=== PATIENT | female | born 1975 | race Caucasian/White ===

== ENCOUNTER 2024-05-19 11:38 | Observation (INO) | payer MEDICAID, SELFPAY ==
[2024-05-19] VITALS (12 sets, daily range): BP systolic 92–103; BP diastolic 60–77; PULSE 71–94; RESP 14–20; TEMP 36.4–36.7; O2SAT 88–100; BMI 35.9
--- NOTE | 2024-05-19 11:56 | EDNOTE_ITS ---
ED SOB =RME/HPI General Chief Complaint: Shortness of Breath/Dyspnea Stated Complaint: SOB WITH SYNCOPAL EPISODE Time Seen by Provider: 05/19/24 11:47 Arrival date/time: 05/19/24 11:38 RME / HPI RME / HPI Narrative: DR. DIAS MAIN ED EVALUATION: This section includes all my notes and documentations, including HPI, PE, and ED course.? Josiah Dias MD HPI: 48 year old female with past medical history significant for asthma and DVT's presents to the Emergency Department [facility] with complaint of shortness of breath onset today. Symptmos are modearte. Pateint also had a syncopal episode at home for a few seconds. Patient went to the the restroom, to urinate, and when she got up she passed out; the daughter helped her. No injury. Per EMS, systolic blood pressure was in leslie 80's. No other complaints reported. ROS: All negative except as documented in HPI. Physical Exam: General:? Alert and oriented.? Tachypnea noted. Eyes:? Conjunctivae and lids clear. PERRL. EOMI. ENT:? No nasal congestion.? ? Neck:? Supple. No carotid bruit. No JVD. Heart: Sinus tachycardia noted. Lungs:? Good air movement.? Stridor and wheezing noted. Rales in the left upper field. Abdomen:? Soft and nontender.? Legs:? No clubbing, cyanosis, edema. Skin:? Warm and dry.? Neuro:? Alert and oriented X 3.? Cranial nerves II to XII grossly normal. No p eripheral motor deficits. I reviewed all diagnostic test results. My interpretation of the EKG is?sinus rhythm with no acute ST?T changes. My interpretation of the chest x-ray is no pneumonia or pulmonary edema My review of the head and neck CT reports is?no acute findings. My review of the ultrasound report is no acute findings. Blood tests and urine tests remarkable for WBC 12.7, negative D-dimer, K 3.3, LA 3.0. COVID/influenza negative. At this point, diagnoses include: Acute respiratory failure with hypoxia, Stridor, Wheezing, Elevated lactic acid level, Hypotension Treatment here included IV fluid, Epinephrine neb treatment, Levalbuterol neb treatment, Lorazepam, oral KCl, and Rocephin. Some improvement noted. I discussed the case with our hospitalist.? About the presentation and exam and diagnostics and treatments here.? And need of further care in the hospital. Will not accept the patient at this time until chest CTA to rule out PE despite normal D-dimer. Ordered chest CTA. At 6 PM on 05/19/2024, the care of the patient was transferred to Dr. Muñoz. Josiah Dias MD Related Data Home Medications ?Medication ?Instructions ?Recorded ?Confirmed gabapentin 800 mg tablet 800 mg PO Q6H 08/04/2004/01 hydrocodone 5 mg-acetaminophen 325 1 tab PO BID PRN Pa in 08/04/20 04/01/23 mg tablet ibuprofen 800 mg tablet 800 mg PO BID 03/22/2104/01 Held on 10/29/22. Instructions: Resume on 11/05/22. naproxen 500 mg tablet (Naprosyn) 500 mg PO Q12HR PRN Pain 03/22/21 04/01/23 Held on 10/29/22. Instructions: Resume on 11/05/22. Previous Rx's ?Medication ?Instructions ?Recorded atorvastatin 20 mg tablet 40 mg (2 x 20 mg) PO HS #60 tabs 07/07/21 famotidine 20 mg tablet 20 mg PO DAILY #30 tabs 06/16 06/05 ibuprofen 800 mg tablet 800 mg PO TID PRN pain #30 t abs 07/17/23 Allergies Allergy/AdvReac Type Severity Reaction Status Date / Time No Known Allergies Allergy Verified 04/01/23 15:04 Course Quality Measures none Orders Category Date Time Status Bedside COVID-19 Antigen Test NOW Care 05/19/24 12:01 Active Bedside Influenza A&B Antigen Test NOW Care 05/19/24 12:[address] Screening NOW Care 05/19/24 12:[address] Screening NOW Care 05/19/24 13:[address] Screening NOW Care 05/19/24 16:39 Active EKG (ED ONLY) *Do not use* NOW Care 05/19/24 12:02 Completed Orthostatic Vitals NOW Care 05/19/24 12:03 Active Saline [Insert IV] NOW Care 05/19/24 12:01 Active Straight [In and Out Catheter] X1 Care 05/19/24 12:[address] abdomen pelvis w con Stat Exams 05/19/24 16:[address] angio chest Stat Exams 05/19/24 16:[address] head/brain wo con Stat Exams 05/19/24 14:[address] soft tissue neck wo con Stat Exams 05/19/24 14:00 Completed EKG (ED Only) Stat Exams 05/19/24 12:02 Ordered US OB <= 14 weeks fetus Stat Exams 05/19/24 13:47 Completed XR chest 1V portable Stat Exams 05/19/24 12:02 Completed ABG [Arterial Blood Gas] Stat Lab 05/19/24 12:37 Completed BNP [B-Type Natriuretic Peptide] Stat Lab 05/19/24 12:32 Completed Beta HCG,Quantitative Stat Lab 05/19/24 12:32 Completed Blood Culture (Lab) Stat Lab 05/19/24 12:20 Received CBC Stat Lab 05/19/24 12:32 Completed CMP [Comprehensive Metabolic Panel] Stat Lab 05/19/24 12:32 Completed CRP [C-Reactive Protein] Stat Lab 05/19/24 12:32 Completed D-Dimer Stat Lab 05/19/24 12:32 Completed ESR [Sed Rate (ESR)] Stat Lab 05/19/24 12:32 Completed HCG Qualitative,Urine Stat Lab 05/19/24 16:56 Completed HCG,Qualitative Serum Stat Lab 05/19/24 12:32 Completed Lactate (Lactic Acid) Stat Lab 05/19/24 12:32 Completed Lactic Acid, 3 HR Stat Lab 05/19/24 16:02 Completed Magnesium Stat Lab 05/19/24 12:32 Completed Procalcitonin Stat Lab 05/19/24 12:32 Completed RSV [Respiratory Syncytial Virus Ag] Stat Lab 05/19/24 12:03 Ordered TSH [Thyroid Stimulating Hormone] Stat Lab 05/19/24 12:32 Completed Troponin I Stat Lab 05/19/24 12:32 Completed UA, C/S IF [Urinalysis, C/S if Indicated] Stat Lab 05/19/24 16:56 Completed EPINEPHrine Rt Cathy [Racemic Epi Rt Cathy] Med 05/19/24 13:05 Discontinued 1 ml INH X1 ONE KCL 10% Liq UDC 15 ML Med 05/19/24 13:27 Discontinued 40 meq PO X1 ONE LORazepam [Ativan Inj] Med 05/19/24 13:05 Discontinued 0.5 mg IVP X1 ONE Levalbuterol Rt [Xopenex Rt Cathy] Med 05/19/24 13:05 Discontinued 1.25 mg INH X1 ONE Sodium Chloride 0.9% 1000 ml [Ns] 1,000 ml Med 05/19/24 12:01 Discontinued IV 999 mls/hr Sodium Chloride Rt Cathy 0.9% [NS Rt Cathy 0.9%] Med 05/19/24 13:05 Active 3 ml INH PRN PRN cefTRIAXone [Rocephin] 1,000 mg Med 05/19/24 12:01 Discontinued SODIUM CHLORIDE 0.9% (Popper) [Ns 0.9% (P)] 50 ml IV X1 Vital Signs Vital signs: Vital Signs Temperature 97.7 F 05/19/24 11:46 Pulse Rate 92 05/19/24 11:46 Respiratory Rate 18 05/19/24 11:46 Blood Pressure 93/60 05/19/24 11:46 Pulse Oximetry (%) 96 05/19/24 11:46 Oxygen Delivery Method Room Air 05/19/24 11:46 Shortness of Breath / Dyspnea MDM Narrative MDM Narrative:: IRomana am scribing for and in the presence of Dr. Dias. Patient data External records reviewed:: EMS form Clinical information provided by:: patient and EMS Social determinants that could affect healthcare access:: none Patient has the following chronic illnesses:: Asthma and DVT's How is presenting disease/condition affected by chronic disease/condition?: exacerbated by Evaluation data The following diagnostics were reviewed and interpreted by me:: lab results, radiology exam(s) and EKG tracing(s) (My interpretation of the EKG is: Sinus rhythm (88 bpm) with nonspecific ST-T changes. Josiah Dias MD) Lab and/or radiology exams considered but not ordered:: none Interpretation Summary: Acute respiratory failure with hypoxia, Stridor, Wheezing, Elevated lactic acid level, Hypotension Medications / Prescriptions Medications or Prescriptions considered but not ordered:: none Medication administrations:: Medication Administration History Sodium Chloride (Sodium Chloride Rt Cathy 0.9% 3 Ml Nebu) 3 ml INH PRN PRN PRN Reason: SOLN Stop: 06/18/24 13:04 Discontinued Medications Epinephrine (Epinephrine Rt Cathy 0.5 Ml Nebu) 1 ml INH X1 ONE Stop: 05/19/24 13:06 Last Admin: 05/19/24 13:31 Dose: 1 ml Documented By: SONY Ceftriaxone Sodium 1,000 mg/ (Sodium Chloride) 50 mls @ 100 mls/hr IV X1 ONE Stop: 05/19/24 12:30 Last Infusion: 05/19/24 13:51 Dose: Infused Documented By: Admin: 05/19/24 13:21 Dose: 100 mls/hr Documented By: RUBEN Sodium Chloride (Ns) 1,000 mls @ 999 mls/hr IV .Q1H1M ONE Stop: 05/19/24 13:01 Last Infusion: 05/19/24 13:05 Dose: Infused Documented By: Admin: 05/19/24 12:04 Dose: 999 mls/hr Documented By: RUBEN Levalbuterol HCl (Levalbuterol Rt 1.25 Mg/0.5 Ml Nebu) 1.25 mg INH X1 ONE Stop: 05/19/24 13:06 Last Admin: 05/19/24 13:31 Dose: 1.25 mg Documented By: SONY Lorazepam (Lorazepam 2 Mg/Ml Vial) 0.5 mg IVP X1 ONE Stop: 05/19/24 13:06 Last Admin: 05/19/24 13:14 Dose: 0.5 mg Documented By: RUBEN Potassium Chloride (Potassium Chloride 10% 20 Meq/15 Ml Udc) 40 meq PO X1 ONE Stop: 05/19/24 13:28 Last Admin: 05/19/24 16:31 Dose: 40 meq Documented By: RUBEN IV fluids, Epinephrine, Levalbuterol, Lorazepam, oral KCl, oxygen, and Rocephin. Consultations Consultation(s) initiated? (list below): No Diagnosis Shortness of Breath Differential Diagnosis: acute exacerbation of chronic obstructive airways disease, congestive heart failure, community acquired pneumonia, asthma with exacerbation and pulmonary embolism Most likely diagnosis given after review of the tests above:: Acute respiratory failure with hypoxia, Stridor, Wheezing, Elevated lactic acid level, Hypotension Admission Indicated Admission indicated?: not indicated Explain why admission is indicated or not indicated:: Chest CTA pending Admission Request Was there a request for admission?: Yes Admission Attestation Admission request attestation: Discussed case with Hospitalist service regarding admission. Discussed patients ED course, exam findings, labs, and radiology results. The Hospitalist [declines] to accept the patient for admission, until chest CTA performed. Disposition Plan Disposition Plan: other (specify) (Care of the patient was transferred to Dr. Muñoz.) Discharge Plan Prescriptions/Referrals Prescriptions/Med Rec: No Action hydrocodone-acetaminophen 5-325 mg Tablet 1 tab PO BID PRN (Reason: Pain) gabapentin 800 mg Tablet 800 mg PO Q6H atorvastatin 20 mg Tablet 40 mg PO HS Qty: 60 0RF famotidine 20 mg Tablet 20 mg PO DAILY Qty: 30 0RF ibuprofen 800 mg Tablet 800 mg PO BID naproxen [Naprosyn] 500 mg tablet 500 mg PO Q12HR PRN (Reason: Pain) ibuprofen 800 mg tablet 800 mg PO TID PRN (Reason: pain) Qty: 30 0RF Referrals: Chepe Lindsey MD [Primary Care Provider] - In 1 week Problem List Clinical Impression: Acute respiratory failure with hypoxia, Stridor, Wheezing, Elevated lactic acid level, Hypotension, Syncope Patient/Caregiver Discharge Instructions Print Language: Spanish
--- NOTE | 2024-05-19 12:02 | EKG_ITS ---
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
--- NOTE | 2024-05-19 12:02 | XR_ITS ---
Examination: AP chest single view TECHNIQUE: Portable AP sitting chest single view Exam date and time: May 19, 2024 1255 hours Comparison October 26, 2022 INDICATIONS: Shortness of breath today. FINDINGS: Normal heart size. No pneumonia or pulmonary edema. Moderate osteopenia IMPRESSION: No pneumonia or pulmonary edema
[2024-05-19] MEDS: SODIUM CHLORIDE 0.9% 1000 ML 1,000 ML 999 ML IV ×2 (12:04→19:35)
[2024-05-19 12:40] LABS: Base Excess -1 (-3-3); HCO3 25 mEq/L (20-26); Inspired Oxygen, FIO2 21 %; O2 Saturation 96 % (91-98); PCO2 46 mmHg (32.0-48.0); PO2 79 mmHg (83-108); pH, Arterial 7.34 (7.35-7.45)
[2024-05-19 12:42] LABS: Allen Test Performed/OK; Puncture Site Right Radial
[2024-05-19 12:53] LABS: Basophils # (Auto) 0.1 Thou/mm3 (0.0-0.2); Basophils % (Auto) 1 % (0-2.5); Eosinophils # (Auto) 0.1 Thou/mm3 (0.0-0.5); Eosinophils % (Auto) 1 % (0-10); Hematocrit 32.2 % (36.0-46.0); Hemoglobin 10.4 g/dL (12.0-16.0); Immature Granulocytes % (Auto) 0 % (0-0); Immature Granulocytes Auto 0.04 Thou/mm3 (0.00-0.00); Lymphocytes # (Auto) 4.1 Thou/mm3 (1.0-4.8); Lymphocytes % (Auto) 32 % (10-50); Mean Corpuscular HGB Conc 32.3 g/dl (31.0-37.0); Mean Corpuscular Hemoglobin 28.1 pg (25.0-35.0); Mean Corpuscular Volume 87 fL (80-100); Monocytes % (Auto) 8 % (0-12); Neutrophils # (Auto) 7.4 Thou/mm3 (1.8-7.7); Neutrophils % (Auto) 58 % (37-80); Nucleated Red Blood Cell % 0 /100 WBC (0); Platelet Count 291 Thou/mm3 (140-440); RDW Standard Deviation 45.8 fL (36.4-46.3); White Blood Count 12.7 Thou/mm3 (3.6-11.0)
[2024-05-19] MEDS: LORazepam 2 MG/ML VIAL 0.5 MG IVP (13:14)
[2024-05-19 13:15] LABS: Sed Rate (ESR) 12 mm/hr (0-20)
[2024-05-19 13:19] LABS: Alanine Aminotransferase 12 U/L (10-49); Albumin, Serum 3.9 gm/dL (3.5-5.0); Albumin/Globulin Ratio 1.6 (1.2-2.2); Alkaline Phosphatase 97 U/L (46-116); Anion Gap 10 (7-16); Aspartate Amino Transferase 33 U/L (0-34); BUN/Creatinine Ratio 12 Ratio (12-20); Bilirubin,Total 0.2 mg/dL (0.3-1.2); Blood Urea Nitrogen 11 mg/dL (9-23); C-Reactive Protein 0.6 mg/dL (0.0-0.9); Calcium 8.6 mg/dL (8.3-10.6); Calcium (Corrected) 8.7 mg/dL (8.5-10.1); Chloride 106 mMol/L (98-107); Creatinine (Component) 0.9 mg/dL (0.6-1.3); Estimated Creatinine Clearance 77.9 mL/min (>60); Globulin 2.4 gm/dL (2.3-3.5); Glucose 132 mg/dL (74-106); Magnesium 1.6 mg/dL (1.6-2.6); Osmolality,Calculated 286 (275-295); Potassium 3.3 mMol/L (3.4-5.1); Procalcitonin 0.07 ng/ml (0.0-0.49); Sodium 143 mMol/L (136-145); Thyroid Stimulating Hormone 5.97 uIU/mL (0.55-4.78); Total Protein 6.3 gm/dL (5.7-8.2); Troponin I < 0.002 ng/mL (0.0-0.045); eGFR > 60 See Note
[2024-05-19] MEDS: cefTRIAXone 1,000 MG in SODIUM CHLORIDE 0.9% (Popper) 50 ML 100 MG IV (13:21)
[2024-05-19 13:31] LABS: HCG,Qualitative Serum Positive
[2024-05-19] MEDS: EPINEPHrine RT SOL 0.5 ML NEBU 1 ML INH (13:31)
[2024-05-19] MEDS: LEVALBUTEROL RT 1.25 MG/0.5 ML NEBU INH (13:31)
[2024-05-19 13:45] LABS: D-Dimer < 250 ng/mL (<600)
--- NOTE | 2024-05-19 13:47 | XR_ITS ---
Examination: Complete OB ultrasound, less than 14 weeks, transabdominal Date and time of exam: May 19, 2024 1411 hours INDICATIONS: Hysterectomy 20 years ago, positive hCG today Technique: Obstetrical ultrasound images less than 14 weeks performed via transabdominal imaging Findings: Absent uterus Ovaries not visualized No free fluid in the pelvis No pelvic mass IMPRESSION: Absent uterus and ovaries
--- NOTE | 2024-05-19 14:00 | XR_ITS ---
Examination: CT brain head without contrast. 2-D sagittal coronal reconstructions Date and time of exam:May 19, 2024 1541 hours INDICATIONS: Syncopal episode today CTDI: vol (mGy):49.8 DLP: (mGycm):999 Technique: Multiple CT axial sections of the brain have been obtained, 5 mm slice thickness. Contrast has not been administered. 2-D sagittal, coronal reconstructions have been obtained Low dose protocols were performed. One or more of the following dose reduction techniques were used; automated exposure control, adjustment of the mA and/or KV according to patient size, use of iterative reconstruction technique. Findings: No significant ventricular enlargement. Intra-axial or extra-axial hemorrhage density is not seen. No mass effect or midline shift Basal cisterns are not remarkable. Fourth ventricle is midline. Cranial vault intact. Impression: Negative for acute hemorrhage, mass effect or midline shift Advise clinical correlation follow-up accordingly
--- NOTE | 2024-05-19 14:00 | XR_ITS ---
Examination: CT soft tissue neck, without intravenous contrast. 2-D coronal reconstructions. 2-D sagittal reconstructions. Date and time of exam :May 19, 2024 1544 hours INDICATIONS: Difficulty swallowing today. CTDI: vol (mGy):15.8 DLP: (mGycm):120 Technique: 1.25 mm axial sections of the neck of the obtained. Coronal and sagittal reconstructions have been obtained. Low dose protocols were performed. One or more of the following dose reduction techniques were used; automated exposure control, adjustment of the mA and/or KV according to patient size, use of iterative reconstruction technique. Findings: Symmetrical optic globes Symmetrical nasopharynx oropharynx on this noncontrast study Subcentimeter posterior cervical lymph nodes Bilateral carotid triangle lymph nodes, the largest on the left side 17 mm Multiple subcentimeter submental lymph nodes The larynx appears normal Thyroid lobes are not enlarged Normal epiglottis IMPRESSION: Carotid triangle lymphadenopathy as above, with the study as baseline recommend 6 month follow-up CT soft tissue neck post intravenous contrast to confirm stability of the carotid triangle lymphadenopathy
[2024-05-19 14:09] LABS: B-Type Natriuretic Peptide < 20 pg/mL (0-100)
[2024-05-19 14:48] LABS: Beta HCG,Quantitative 4 mIU/mL (<5.0)
[2024-05-19 15:46] LABS: Reflex Lactate? Y
[2024-05-19 16:09] LABS: Lactic Acid, 3 HR 2.8 mMol/L (0.4-2.0)
[2024-05-19] MEDS: POTASSIUM CHLORIDE 10% 20 MEQ/15 ML UDC 40 MEQ PO ×2 (16:31→22:55)
--- NOTE | 2024-05-19 16:39 | XR_ITS ---
Examination: CTA chest with intravenous contrast 2-D reconstructions 3-D reconstructions, vascular Date and time of exam: May 19, 2024 1919 hrs. Indications: Onset chest pain shortness of breath today CTDI: vol (mGy) 12.5 DLP: (mGycm) 368 Technique: Multiple axial sections of the thorax have been obtained. 3 mm slice thickness, from below the hemidiaphragms to above the apices of the lungs. Mediastinal and lung density settings have been obtained. 2-D sagittal and coronal reconstructions. 3-D angiographic renderings, 3-D volume renderings, 3D post processing, vascular maximum intensity projections obtained. Contrast administered is 100 cc Isovue-370. Low dose protocols were performed. One or more of the following dose reduction techniques were used; automated exposure control, adjustment of the mA and/or KV according to patient size, use of iterative reconstruction technique. Findings: No thoracic aortic aneurysm dilatation No pulmonary artery filling defects No paratracheal tracheobronchial or bronchopulmonary adenopathy Moderate vascular congestion Significant bibasilar pneumonia Impression: Negative for pulmonary artery emboli Significant bibasilar pneumonia Moderate vascular congestion
--- NOTE | 2024-05-19 16:39 | XR_ITS ---
Examination: CT abdomen with intravenous contrast CT pelvis with intravenous contrast 2-D coronal reconstructions 2-D sagittal reconstructions Date and time of exam:June 08 1918 hrs. Indications: Onset generalized abdominal pain. CTDI: vol (mGy) 11.1 DLP: (mGycm) 659 Technique: Multiple axial sections of the abdomen and pelvis have been obtained. 64 slice high-resolution scanner used. 3 mm axial sections have been obtained, post intravenous injection 100 cc Isovue-370 2-D sagittal, coronal reconstructions obtained. Low dose protocols were performed. One or more of the following dose reduction techniques were used; automated exposure control, adjustment of the mA and/or KV according to patient size, use of iterative reconstruction technique. Findings: Bibasilar pneumonia. Fatty infiltration throughout the liver Spleen is not enlarged No gallstones No pancreatic or adrenal mass No renal or ureteral calculi, hydronephrosis No bowel obstruction Normal appendix No diverticulitis. Urinary bladder intact Absent uterus Lumbar fusion L4-S1 Impression: Bibasilar pneumonia Fatty liver No renal or ureteral calculi, no hydronephrosis No bowel obstruction or diverticulitis Normal appendix
[2024-05-19 17:01] LABS: Collection Type, Urine Clean Catch
[2024-05-19 17:15] LABS: Bilirubin,Urine Negative (Negative); Blood,Urine Negative (Negative); Clarity,Urine Clear (Clear/Hazy); Color,Urine Colorless (Lt Yel-Yel); Culture Indicated,Urine Not Indicated; Glucose, Urine Negative (Negative); Ketones,Urine Negative (Negative); Leukocyte Esterase,Urine Positive (Negative); Nitrite,Urine Negative (Negative); PH,Urine 6.5 (5.0-7.0); Protein,Urine Negative (Neg - Trace); RBC,Urine 2 /hpf (0-3); Specific Gravity,Urine 1.007 (1.001-1.035); Squamous Epithelial Cell,Urine 4 /hpf (0-5); Urobilinogen,Urine Negative mg/dL (0.0-1.0); WBC,Urine 3 /hpf (0-5)
[2024-05-19 17:17] LABS: HCG Qualitative,Urine Negative
--- NOTE | 2024-05-19 18:01 | EDNOTE_ITS ---
Emergency Room Addendum Addendum Narrative: 1800: Care assumed from Dr. Matos, the previous shift emergency physician. Past medical, surgical, social and family history reviewed. Vitals and home medications reviewed. Results and treatment plan discussed. I will assume the care of the patient at this time and will follow the patient, pending CTA of the chest. Please refer to the emergency department record for history and examination from initial visit. Patient presents to the ED for a chief complaint of syncope. Daughter states the patient was coming out of the bathroom when she suddenly felt generally weak and faint. She states the patient sat down and passed out on the chair. Patient was in and out of consciousness and appeared short of breath. Daughter states she was worried due to the patient being altered, so she called 911 to have her brought in for evaluation. She reports associated sweating. Patient notes she had chest pain and shortness of breath earlier, but reports it has resolved. 2100: Discussed case with Dr. Quiñonez, attending Dr. Gamble from Hospitalist service regarding admission. Discussed patients ED course, exam findings, labs, and radiology results. The Hospitalist agrees to accept the patient for admission. Diagnoses: pneumonia, sepsis, syncope RADIOLOGY RESULTS: [facility] Report Signed Patient: JACINTO ROCHA Record#: [id number] Birthdate: 1975 Age/Sex: 48 / F Location: [facility] Attending Dr: Ordering Physician: Josiah Matos MD Date of Service: 05/19/24 Procedure(s): CT abdomen pelvis w con Accession Number(s): [id number] cc: Chepe Lindsey MD; Josiah Matos MD; Simon Cardona MD~ Examination: CT abdomen with intravenous contrast CT pelvis with intravenous contrast 2-D coronal reconstructions 2-D sagittal reconstructions Date and time of exam:June 08 1918 hrs. Indications: Onset generalized abdominal pain. CTDI: vol (mGy) 11.1 DLP: (mGycm) 659 Technique: Multiple axial sections of the abdomen and pelvis have been obtained. 64 slice high-resolution scanner used. 3 mm axial sections have been obtained, post intravenous injection 100 cc Isovue-370 2-D sagittal, coronal reconstructions obtained. Low dose protocols were performed. One or more of the following dose reduction techniques were used; automated exposure control, adjustment of the mA and/or KV according to patient size, use of iterative reconstruction technique. Findings: Bibasilar pneumonia. Fatty infiltration throughout the liver Spleen is not enlarged No gallstones No pancreatic or adrenal mass No renal or ureteral calculi, hydronephrosis No bowel obstruction Normal appendix No diverticulitis. Urinary bladder intact Absent uterus Lumbar fusion L4-S1 Impression: Bibasilar pneumonia Fatty liver No renal or ureteral calculi, no hydronephrosis No bowel obstruction or diverticulitis Normal appendix Dictated By: Simon Cardona MD Signed By: <Electronically signed by Simon Cardona MD in OV> 05/19/242033 [facility] Report Signed Patient: JACINTO ROCHA Record#: [id number] Birthdate: 1975 Age/Sex: 48 / F Location: [facility] Attending Dr: Ordering Physician: Josiah Matos MD Date of Service: 05/19/24 Procedure(s): CT angio chest Accession Number(s): [id number] cc: Chepe Lindsey MD; Josiah Matos MD; Simon Cardona MD~ Examination: CTA chest with intravenous contrast 2-D reconstructions 3-D reconstructions, vascular Date and time of exam: May 19, 2024 1919 hrs. Indications: Onset chest pain shortness of breath today CTDI: vol (mGy) 12.5 DLP: (mGycm) 368 Technique: Multiple axial sections of the thorax have been obtained. 3 mm slice thickness, from below the hemidiaphragms to above the apices of the lungs. Mediastinal and lung density settings have been obtained. 2-D sagittal and coronal reconstructions. 3-D angiographic renderings, 3-D volume renderings, 3D post processing, vascular maximum intensity projections obtained. Contrast administered is 100 cc Isovue-370. Low dose protocols were performed. One or more of the following dose reduction techniques were used; automated exposure control, adjustment of the mA and/or KV according to patient size, use of iterative reconstruction technique. Findings: No thoracic aortic aneurysm dilatation No pulmonary artery filling defects No paratracheal tracheobronchial or bronchopulmonary adenopathy Moderate vascular congestion Significant bibasilar pneumonia Impression: Negative for pulmonary artery emboli Significant bibasilar pneumonia Moderate vascular congestion Dictated By: Simon Cardona MD Signed By: <Electronically signed by Simon Cardona MD in OV> 05/19/242035
[2024-05-19 18:33] LABS: Respiratory Syncytial Virus Ag Negative (Negative)
[2024-05-19 19:49] LABS: Free T4 (Free Thyroxine) 1.18 ng/dL (0.89-1.76); Troponin I < 0.002 ng/mL (0.0-0.045)
--- NOTE | 2024-05-19 22:28 | ESHP_ITS ---
<Statement entered by Tgiist Gamble MD - 05/20/24 04:11> 48-year-old female with multiple comorbidities including asthma not on home oxygen, migraine and verapamil to 40 mg and history of DVT status post therapy who presented to the ER status post syncopal episode. Patient states that she was feeling headache and she took her verapamil and subsequently few hours after she started becoming dizzy and sweaty and subsequently blood pressure check noted blood pressure of 80/53 and subsequently had a syncopal episode which prompted ER visit. In the ER, patient underwent CT head with no evidence of any acute intracranial abnormality and plan to admit the patient for syncope likely vasovagal versus orthostatic. In addition, patient also noted to have asthma exacerbation with underlying community-acquired pneumonia and plan to continue Rocephin and doxycycline in addition to breathing treatment.I reviewed above note and agree with findings and plans. I have also personally examined the patient with medicine team and went over assessment and plan with medical team including sports management intern and resident physician. Documentation for date of: 05/19/24 HPI History of Present Illness Chief complaint: An episode dizziness and sweating History of present illness: HPI:A 48-year-old female patient with past medical history of asthma, DVT in 2017after she had back surgery, diverticulosis, migraine on verapamil 240 mg as needed, Endometriosis status post hysterectomy presented to the ED was brought to the ED by her daughter after she had an episode of syncope this morning. The patient reported that she started to feel mild headache in which she took every verapamil pill 240 mg. After that the patient became dizzy and sweaty. Patient denied any fall and her daughter came to check on her and noticed that her mother was pale and blue lips. She reported that this episode lasted for few minutes, the daughter tried to check her pulse and she could not feel it so she decided to take her blood pressure and noticed that her blood pressure was 80/53, she called ambulance in which EMS came and assessed the patient and they felt weak thready pulse. On questioning patient reported that during the episode she felt chest tightness and pressure and mild shortness of breath. She reported that the pain was on the left side and radiated to the back and increased when she took deep breath or when she moves. She denied any similar episodes in the past. On review of other system patient reported that she has history of diverticulosis and she has been having mild episodes of hematochezia. She reported that colonoscopy was done and there was the recommendations for her diverticulosis reportedly. Denied any fever or cough and denied any nausea or vomiting. Patient denied any similar episodes in the past, denied any abdominal pain, fever, cough, flulike symptoms or any new medication. Home medications: Verapamil ED course: On presentation at the ED patient was noted to be cold and clammy and lethargic, her blood pressure was 93/60 and her heart rate was 92 respiratory rate of 18 and temperature was normal she was saturating well on room air. CBC showed WBC of 12.7, hemoglobin of 10, ABG showed pO2 of 79, pH of 7.34, potassium was 3.3, glucose 132, lactic acid 2.8, troponin in 2 reads was within normal limits, BNP was normal CRP normal Pro-Luke normal TSH was mildly elevated 5.97 however free T4 was normal at 1.18, beta-hCG was positive however quantitative beta-hCG was within normal limits. The ED physicians they are suspecting that the patient might have pulmonary embolism for that reason they did chest CT angiogram which was negative for any pulmonary embolism however it was positive for extensive bilateral pneumonia with moderate vascular congestion. PMH: Social hx: Alcohol: Last drink was 5 years ago Tobacco: Denied Illicit drugs: Denied Allergies: No known allergies Review of Systems Review of Systems Systems Reviewed: All systems reviewed, normal except as documented Exam Vital Signs Temp Pulse Resp BP Pulse Ox O2 Del Method O2 Flow Rate 97.6 F 73 17 100/70 100 Nasal Cannula 2 05/19/24 20:58 05/19/24 20:58 05/19/24 20:58 05/19/24 20:58 05/19/24 20:58 05/19/24 20:58 05/19/24 20:58 Narrative Exam GEN: AOx3, however he lethargic, pale, able to speak full sentences HEENT: NC/AC, oral mucosa dry, neck supple CVS: RRR, S1-S2 present, no murmurs appreciated RESP: Good air entry bilaterally, no added sounds GI: soft,non distended, non tender, NBS MSK: able to move all 4 limbs, no lower extremity edema SKIN: warm and dry WOUND CARE SPECIALIST: CN II-XII and Sensation grossly intact. No focal neurological deficit. Results: Labs 05/19/24 12:32 05/19/24 12:32 Labs: Short CBC 05/19/24 Range/Units 12:32 WBC 12.7 H (3.6-11.0) Thou/mm3 Hgb 10.4 L (12.0-16.0) g/dL Hct 32.2 L (36.0-46.0) % Plt Count 291 (140-440) Thou/mm3 BMP 05/19/24 12:32 Sodium 143 Potassium 3.3 L Chloride 106 Carbon Dioxide 27.0 BUN 11 Creatinine 0.9 Glucose 132 H Calcium 8.6 Cardiac Enzymes 05/19/24 05/19/24 Range/Units 12:32 18:52 Troponin I < 0.002 < 0.002 (0.0-0.045) ng/mL Liver Function 05/19/24 Range/Units 12:32 Total Bilirubin 0.2 L (0.3-1.2) mg/dL AST 33 (0-34) U/L ALT 12 (10-49) U/L Alkaline Phosphatase 97 (46-116) U/L Albumin 3.9 (3.5-5.0) gm/dL Urine 05/19/24 Range/Units 16:56 Urine Color Colorless A (Lt Yel-Yel) Urine Clarity Clear (Clear/Hazy) Urine pH 6.5 (5.0-7.0) Ur Specific [place] 1.007 (1.001-1.035) Urine Protein Negative (Neg - Trace) Urine Glucose (UA) Negative (Negative) ABG Interpretation ABG results: 05/19/24 12:37 ABG pH 7.34 L ABG pCO2 46 ABG pO2 79 L ABG HCO3 25 ABG O2 Saturation 96 ABG Base Excess -1 Quality Measures Quality Measures none Medications Home Medications and Allergies Home Medications ?Medication ?Instructions ?Recorded ?Confirmed ?Type gabapentin 800 mg tablet 800 mg PO Q6H 08/04/2004/01 History hydrocodone 5 mg-acetaminophen 325 1 tab PO BID PRN Pa in 08/04/20 04/01/23 History mg tablet ibuprofen 800 mg tablet 800 mg PO BID 03/22/2104/01 History Held on 10/29/22. Instructions: Resume on 11/05/22. naproxen 500 mg tablet (Naprosyn) 500 mg PO Q12HR PRN Pain 03/22/21 04/01/23 History Held on 10/29/22. Instructions: Resume on 11/05/22. Allergies Allergy/AdvReac Type Severity Reaction Status Date / Time No Known Allergies Allergy Verified 04/01/23 15:04 Visit Medications Sodium Chloride (Sodium Chloride Rt Cathy 0.9% 3 Ml Nebu) 3 ml INH PRN PRN PRN Reason: SOLN Stop: 06/18/24 13:04 Discontinued Medications Epinephrine (Epinephrine Rt Cathy 0.5 Ml Nebu) 1 ml INH X1 ONE Stop: 05/19/24 13:06 Last Admin: 05/19/24 13:31 Dose: 1 ml Ceftriaxone Sodium 1,000 mg/ (Sodium Chloride) 50 mls @ 100 mls/hr IV X1 ONE Stop: 05/19/24 12:30 Last Infusion: 05/19/24 13:51 Dose: Infused Sodium Chloride (Ns) 1,000 mls @ 999 mls/hr IV .Q1H1M ONE Stop: 05/19/24 13:01 Last Infusion: 05/19/24 13:05 Dose: Infused Sodium Chloride (Ns) 1,000 mls @ 999 mls/hr IV .Q1H1M ONE Stop: 05/19/24 20:24 Last Infusion: 05/19/24 20:36 Dose: Infused Sodium Chloride (Ns) 1,000 mls @ 999 mls/hr IV .Q1H1M ONE Stop: 05/19/24 22:04 Last Admin: 05/19/24 21:44 Dose: Not Given Levalbuterol HCl (Levalbuterol Rt 1.25 Mg/0.5 Ml Nebu) 1.25 mg INH X1 ONE Stop: 05/19/24 13:06 Last Admin: 05/19/24 13:31 Dose: 1.25 mg Lorazepam (Lorazepam 2 Mg/Ml Vial) 0.5 mg IVP X1 ONE Stop: 05/19/24 13:06 Last Admin: 05/19/24 13:14 Dose: 0.5 mg Potassium Chloride (Potassium Chloride 10% 20 Meq/15 Ml Udc) 40 meq PO X1 ONE Stop: 05/19/24 13:28 Last Admin: 05/19/24 16:31 Dose: 40 meq Assessment & Plan Plan Summary:A 48-year-old female patient with past medical history of asthma, DVT in 2017after she had back surgery, diverticulosis, migraine on verapamil 240 mg as needed, Endometriosis status post hysterectomy presented to the ED was brought to the ED by her daughter after she had an episode of syncope this morning. Patient is admitted for workup of syncope and treatment of sepsis secondary to pneumonia. Assessment and plan #Syncopal episode #Hypertension DDx most likely medication side effect, less likely arrhythmia, Patient has history of migraine in which she takes verapamil to 40 mg p.o. as needed, before her episode today she took 1 pill of verapamil 240 mg. Patient was found by the EMS to have weak pulse, low blood pressure Troponin was within normal limits, EKG showed [place] interval was borderline at 197 potassium was 3.3, magnesium and phosphorus within normal limits Plan ? Admit patient to telemetry for observation ? Hold all home medications including verapamil ? Repeat EKG ? Orthostatic vitals ? PT referral ? Repeat CBC and BMP tomorrow #Sepsis secondary to pneumonia #Community-acquired pneumonia #History of asthma on inhaler On presentation patient heart rate was 92 despite that the patient took verapamil this morning, WBC was 12.7, chest CT showed extensive bilateral pneumonia. And it was negative for pulmonary embolism At this time patient on room air saturating well Plan ? Start the patient on ceftriaxone 1 g daily ? Start the patient on doxycycline 100 mg ? MRSA screening ? Follow-up on blood culture and urine culture ? Sent for MRSA screening, Legionella, cocci #History of migraine Plan ? Consider discontinue verapamil or decrease the dose upon discharge #History of diverticulosis At this time patient reported that there is some tinge of blood with her stool, she said that her condition is chronic and she has had colonoscopy and she was diagnosed with diverticulosis. Patient denied any other source of bleeding, she has history of hysterectomy secondary to endometriosis Plan ? Monitor CBC daily ? Consider consulting GI if the patient continues to be hypotensive, hemoglobin continued to drop. Hospital Maintenance: FEN: Cardiac diet DVT ppx: SCD GI ppx: Not indicated IV lines: PIV [place]: None Code status: Full code Dispo: Telemetry - Patient's plan and care discussed with my attending, Dr. Tye Quiñonez MD Internal Medicine PGY-2
--- NOTE | 2024-05-19 22:35 | EKG_ITS ---
[facility] Test Date: 2024-05-19 Pat Name: JACINTO ROCHA Department: Room: - Gender: Female Automatic Developer: : 1975 Requested By: Ronak Quiñonez Order Number: [id number] Reading MD: Ronak Quiñonez Measurements Intervals Mora Rate: 86 P: 5 OK: 201 QRS: 17 QRSD: 105 T: 43 QT: 409 QTc: 491 Interpretive Statements SINUS RHYTHM NONSPECIFIC T-WAVE ABNORMALITY Compared to ECG 10/29/2022 15:10:28 T-wave abnormality now present Sinus bradycardia no longer present Sinus arrhythmia no longer present /store/S0/[id number].pdf
[2024-05-19] MEDS: SODIUM CHLORIDE 0.9% 500 ML 500 ML 999 ML IV (23:00)
[2024-05-19 23:09] LABS: Lactate (Lactic Acid) 1.6 mMol/L (0.4-2.0)
[2024-05-20] VITALS (8 sets, daily range): BP systolic 96–121; BP diastolic 62–100; PULSE 78–116; RESP 12–95; TEMP 36.2–36.4; O2SAT 95–100
[2024-05-20] MEDS: DOXYCYCLINE 100 MG TABLET PO ×2 (00:32→08:13)
[2024-05-20 05:54] LABS: Basophils # (Auto) 0.1 Thou/mm3 (0.0-0.2); Basophils % (Auto) 1 % (0-2.5); Eosinophils # (Auto) 0.1 Thou/mm3 (0.0-0.5); Eosinophils % (Auto) 1 % (0-10); Hematocrit 29.8 % (36.0-46.0); Hemoglobin 9.6 g/dL (12.0-16.0); Immature Granulocytes % (Auto) 0 % (0-0); Immature Granulocytes Auto 0.01 Thou/mm3 (0.00-0.00); Lymphocytes # (Auto) 2.5 Thou/mm3 (1.0-4.8); Lymphocytes % (Auto) 33 % (10-50); Mean Corpuscular HGB Conc 32.2 g/dl (31.0-37.0); Mean Corpuscular Hemoglobin 28.3 pg (25.0-35.0); Mean Corpuscular Volume 88 fL (80-100); Monocytes # (Auto) 0.6 Thou/mm3 (0.0-0.8); Monocytes % (Auto) 8 % (0-12); Neutrophils # (Auto) 4.3 Thou/mm3 (1.8-7.7); Neutrophils % (Auto) 57 % (37-80); Nucleated Red Blood Cell % 0 /100 WBC (0); Platelet Count 281 Thou/mm3 (140-440); RDW Standard Deviation 48.2 fL (36.4-46.3); Red Blood Count 3.39 Miln/mm3 (4.00-5.20); White Blood Count 7.5 Thou/mm3 (3.6-11.0)
[2024-05-20 06:07] LABS: Partial Thromboplastin Time 25.1 Seconds (22.0-36.0); Prothrombin Time 11.2 Seconds (9.0-12.2)
[2024-05-20 06:18] LABS: Alanine Aminotransferase 27 U/L (10-49); Albumin, Serum 3.8 gm/dL (3.5-5.0); Albumin/Globulin Ratio 1.8 (1.2-2.2); Alkaline Phosphatase 92 U/L (46-116); Anion Gap 8 (7-16); Aspartate Amino Transferase 35 U/L (0-34); BUN/Creatinine Ratio 13 Ratio (12-20); Bilirubin,Total 0.3 mg/dL (0.3-1.2); Blood Urea Nitrogen 8 mg/dL (9-23); Calcium 8.7 mg/dL (8.3-10.6); Calcium (Corrected) 8.9 mg/dL (8.5-10.1); Carbon Dioxide 27.3 mMol/L (20.0-31.0); Chloride 111 mMol/L (98-107); Creatinine (Component) 0.6 mg/dL (0.6-1.3); Estimated Creatinine Clearance 159.4 mL/min (>60); Globulin 2.1 gm/dL (2.3-3.5); Glucose 102 mg/dL (74-106); Magnesium 1.8 mg/dL (1.6-2.6); Osmolality,Calculated 288 (275-295); Phosphorous 4.1 mg/dL (2.4-5.1); Potassium 4.1 mMol/L (3.4-5.1); Sodium 146 mMol/L (136-145); Total Protein 5.9 gm/dL (5.7-8.2); eGFR > 60 See Note
--- NOTE | 2024-05-20 09:24 | ECHO_ITS ---
Transthoracic Echo Report Ht (in): 61 Wt (lb): 190 Exam Location: Portable Status: Inpatient Sprinkler Fitter Apprentice: CARLOS Bailey^^^^ Indications: Procedure Performed: BP: 126 / 77 HR: 84 Rhythm: Sinus Technical Quality: Fair MEASUREMENTS (Male / Female) Normal Values 2D ECHO LV Diastolic Diameter PLAX 4.3 cm 4.2 - 5.9 / 3.9 - 5.3 cm LV Systolic Diameter PLAX 2.9 cm IVS Diastolic Thickness 0.8 cm 0.6 - 1.0 / 0.6 - 0.9 cm LVPW Diastolic Thickness 0.7 cm 0.6 - 1.0 / 0.6 - 0.9 cm LV Relative Wall Thickness 0.4 Aortic Root Diameter 3.2 cm LA Systolic Diameter LX 3.1 cm 3.0 - 4.0 / 2.7 - 3.8 cm LV Ejection Fraction MOD 4C 57.3 % LV Cardiac Index MOD 4C 2168.3 cm?/min?m? LV Ejection Fraction 4C AL 58.8 % LV Cardiac Index 4C AL 2322.7 cm?/min?m? LA Volume Index 26.6 cm?/m? 16 - 28 cm?/m? Ascending Aorta Diameter 3.1 cm DOPPLER AV Peak Velocity 133.5 cm/s AV Peak Gradient 7.1 mmHg AV Mean Gradient 4.5 mmHg AV Velocity Time Integral 28.2 cm AI Peak Velocity 215.0 cm/s AI Peak Gradient 18.5 mmHg AI Pressure Half Time 573.0 ms LVOT Peak Velocity 113.0 cm/s LVOT Peak Gradient 5.1 mmHg LVOT Velocity Time Integral 22.6 cm MV Area PHT 3.9 cm? MR Peak Velocity 347.0 cm/s MR Peak Gradient 48.2 mmHg Mitral E Point Velocity 73.2 cm/s Mitral A Point Velocity 79.7 cm/s Mitral E to A Ratio 0.9 LV E' Lateral Velocity 7.4 cm/s Mitral E to LV E' Lateral Ratio 9.9 LV E' Septal Velocity 6.1 cm/s Mitral E to LV E' Septal Ratio 12.0 TR Peak Velocity 228.5 cm/s TR Peak Gradient 20.9 mmHg PV Peak Velocity 81.8 cm/s PV Peak Gradient 2.7 mmHg RVOT Peak Velocity 44.3 cm/s FINDINGS Left Ventricle Normal left ventricular size, wall thickness, systolic function with no obvious regional wall motion abnormalities. There is grade I diastolic dysfunction of the left ventricle (impaired relaxation pattern). The left ventricular ejection fraction is normal, estimated at 60-65%. Right Ventricle The right ventricle is normal in size and systolic function. The estimated right ventricular systolic pressure, 21 mmHg. Left Atrium The left atrium is normal by two-dimensional, color flow and Doppler imaging with no structural abnormalities, no thrombus formation present. Right Atrium The right atrium is normal by two-dimensional imaging, color flow and Doppler imaging with no structural abnormalities, no thrombus formation present. Atrial Septum The interatrial septum appears normal with no evidence of a shunt. Aorta The aorta is normal by two-dimensional, color flow and Doppler interrogation. Mitral Valve Mild mitral regurgitation. Mild mitral annular calcification. Aortic Valve Trace to mild aortic valve regurgitation. Tricuspid Valve There is mild tricuspid valve regurgitation. Pulmonic Valve Trivial pulmonic valve regurgitation. Vessels The pulmonary artery appears normal. The inferior vena cava pulmonary and hepatic veins appear normal. Pericardium The pericardium is normal by two-dimensional imaging. There is no significant pericardial effusion. CONCLUSIONS indication: syncope LV appears normal with EF 60-65%. Diastolic Dysfunction II present. RV appears normal with RVSP 21 mmHg. MV has mild MR & MAC AOV has trace-mild AI. TV has mild TR. Josephine Alston (Electronically Signed) Final Date: 20 May 2024 12:18
--- NOTE | 2024-05-20 10:07 | PC.SS ---
Patient is alert/oriented. Patient was able to verify demographics. Patient states she resides with both daughters. She was admitted for syncope. Patient states she is independent with ADL's. No DME. Patient states her family assists with all needs. They provide transportation. They assist in setting up medication. Patient pharmacy: [facility]. PCP: Dr. Lindsey @ [facility]. Last appt. was last year. Patient is here on observation. Patient alt medical decision maker is Jessica, the daughter. D/c plan: return home.
--- NOTE | 2024-05-20 12:23 | PD.RESPRO ---
Documentation for date of: 05/20/24 Subjective Subjective Interval history: Patient seen today at the bedside fine awake, alert, oriented x 3. No overnight events reported. States improvement in dizziness and lightheadedness. Patient symptoms likely secondary to medications. Vital signs stable at this time. Orthostatics negative. Echo ordered to evaluate for structural heart disease, as part of further workup for syncope. Labs at this time unremarkable. Cultures are pending. Will continue current management with IV ceftriaxone and doxycycline. Exam Vital Signs Temp Pulse Resp BP Pulse Ox O2 Del Method O2 Flow Rate 97.5 F 86 27 H 96/62 99 Nasal Cannula 2 05/20/24 08:00 05/20/24 08:00 05/20/24 08:00 05/20/24 08:00 05/20/24 08:00 05/20/24 08:00 05/20/24 08:00 Narrative Exam Physical Exam GENERAL: NAD, AAOx3, obese HEENT: Moist mucosa. Eyes open, symmetrical, & clear CARDIO: Heart RRR, no obvious murmurs PULM: No noted coughing/dyspnea CTA B/L, no R/W/R GI: Abdomen soft, nondistended, no pain on palpation. BSx4 SKIN/MSK/EXT: No wounds/rashes/edema/amputations, no pain on palpation. Pedal pulses present B/L NEURO: AAOx3, no focal neuro deficits, able to move all 4 extremities Objective Labs 05/20/24 04:39 05/20/24 04:39 Labs: Laboratory Results - last 24 hr 05/19/24 05/19/24 05/19/24 12:32 12:37 16:02 WBC 12.7 H RBC 3.70 L Hgb 10.4 L Hct 32.2 L MCV 87 MCH 28.1 MCHC 32.3 RDW Std Deviation 45.8 Plt Count 291 Neut % (Auto) 58 Lymph % (Auto) 32 [place] % (Auto) 8 Eos % (Auto) 1 Baso % (Auto) 1 Neut # (Auto) 7.4 Lymph # (Auto) 4.1 Tate # (Auto) 1.0 H Eos # (Auto) 0.1 Baso # (Auto) 0.1 Immature Gran # (Auto) 0.04 H Absolute Nucleated RBC 0.00 Immature Gran % 0 Nucleated RBC % 0 ESR 12 PT INR APTT D-Dimer < 250 Puncture Site Right Radial ABG pH 7.34 L ABG pCO2 46 ABG pO2 79 L ABG HCO3 25 ABG O2 Saturation 96 ABG Base Excess -1 FiO2 21 Sodium 143 Potassium 3.3 L Chloride 106 Carbon Dioxide 27.0 Anion Gap 10 BUN 11 Creatinine 0.9 Estim Creat Clear Calc 77.9 eGFR > 60 BUN/Creatinine Ratio 12 Glucose 132 H Calculated Osmolality 286 Lactic Acid 3.0 H 2.8 H Calcium 8.6 Corrected Calcium 8.7 Phosphorus Magnesium 1.6 Total Bilirubin 0.2 L AST 33 ALT 12 Alkaline Phosphatase 97 Troponin I < 0.002 C-Reactive Prot, Quant 0.6 B-Natriuretic Peptide < 20 Total Protein 6.3 Albumin 3.9 Globulin 2.4 Albumin/Globulin Ratio 1.6 Procalcitonin 0.07 TSH 5.97 H Free T4 HCG, Qual Positive Beta HCG, Quant 4 Ur Collection Type Urine Color Urine Clarity Urine pH Ur Specific [place] Urine Protein Urine Glucose (UA) Urine Ketones Urine Blood Urine Nitrite Urine Bilirubin Urine Urobilinogen (Auto) Ur Leukocyte Esterase Urine RBC Urine WBC Ur Squamous Epith Cells Urine Bacteria Ur Culture Indicated? Urine HCG, Qual RSV Rapid 05/19/24 05/19/24 05/19/24 16:56 17:46 18:52 WBC RBC Hgb Hct MCV MCH MCHC RDW Std Deviation Plt Count Neut % (Auto) Lymph % (Auto) [place] % (Auto) Eos % (Auto) Baso % (Auto) Neut # (Auto) Lymph # (Auto) Tate # (Auto) Eos # (Auto) Baso # (Auto) Immature Gran # (Auto) Absolute Nucleated RBC Immature Gran % Nucleated RBC % ESR PT INR APTT D-Dimer Puncture Site ABG pH ABG pCO2 ABG pO2 ABG HCO3 ABG O2 Saturation ABG Base Excess FiO2 Sodium Potassium Chloride Carbon Dioxide Anion Gap BUN Creatinine Estim Creat Clear Calc eGFR BUN/Creatinine Ratio Glucose Calculated Osmolality Lactic Acid Calcium Corrected Calcium Phosphorus Magnesium Total Bilirubin AST ALT Alkaline Phosphatase Troponin I < 0.002 C-Reactive Prot, Quant B-Natriuretic Peptide Total Protein Albumin Globulin Albumin/Globulin Ratio Procalcitonin TSH Free T4 1.18 HCG, Qual Beta HCG, Quant Ur Collection Type Clean Catch Urine Color Colorless A Urine Clarity Clear Urine pH 6.5 Ur Specific [place] 1.007 Urine Protein Negative Urine Glucose (UA) Negative Urine Ketones Negative Urine Blood Negative Urine Nitrite Negative Urine Bilirubin Negative Urine Urobilinogen (Auto) Negative Ur Leukocyte Esterase Positive Urine RBC 2 Urine WBC 3 Ur Squamous Epith Cells 4 Urine Bacteria None Ur Culture Indicated? Not Indicated Urine HCG, Qual Negative RSV Rapid Negative 05/19/24 05/20/24 23:02 04:39 WBC 7.5 D RBC 3.39 L Hgb 9.6 L Hct 29.8 L MCV 88 MCH 28.3 MCHC 32.2 RDW Std Deviation 48.2 H Plt Count 281 Neut % (Auto) 57 Lymph % (Auto) 33 [place] % (Auto) 8 Eos % (Auto) 1 Baso % (Auto) 1 Neut # (Auto) 4.3 Lymph # (Auto) 2.5 Tate # (Auto) 0.6 Eos # (Auto) 0.1 Baso # (Auto) 0.1 Immature Gran # (Auto) 0.01 H Absolute Nucleated RBC 0.00 Immature Gran % 0 Nucleated RBC % 0 ESR PT 11.2 INR 1.0 APTT 25.1 D-Dimer Puncture Site ABG pH ABG pCO2 ABG pO2 ABG HCO3 ABG O2 Saturation ABG Base Excess FiO2 Sodium 146 H Potassium 4.1 D Chloride 111 H Carbon Dioxide 27.3 Anion Gap 8 BUN 8 L Creatinine 0.6 Estim Creat Clear Calc 159.4 eGFR > 60 BUN/Creatinine Ratio 13 Glucose 102 Calculated Osmolality 288 Lactic Acid 1.6 Calcium 8.7 Corrected Calcium 8.9 Phosphorus 4.1 Magnesium 1.8 Total Bilirubin 0.3 AST 35 H ALT 27 Alkaline Phosphatase 92 Troponin I C-Reactive Prot, Quant B-Natriuretic Peptide Total Protein 5.9 Albumin 3.8 Globulin 2.1 L Albumin/Globulin Ratio 1.8 Procalcitonin TSH Free T4 HCG, Qual Beta HCG, Quant Ur Collection Type Urine Color Urine Clarity Urine pH Ur Specific [place] Urine Protein Urine Glucose (UA) Urine Ketones Urine Blood Urine Nitrite Urine Bilirubin Urine Urobilinogen (Auto) Ur Leukocyte Esterase Urine RBC Urine WBC Ur Squamous Epith Cells Urine Bacteria Ur Culture Indicated? Urine HCG, Qual RSV Rapid ABG Interpretation ABG results: 05/19/24 12:37 ABG pH 7.34 L ABG pCO2 46 ABG pO2 79 L ABG HCO3 25 ABG O2 Saturation 96 ABG Base Excess -1 Quality Measures Quality Measures none Assessment & Plan Assessment Current Active Medications: Generic Name Dose Route Start Last Admin Trade Name Freq PRN Reason Stop Dose Admin Acetaminophen 650 mg 05/19/24 22:29 Acetaminophen 325 Mg Tablet PO 06/18/24 22:28 Q6H PRN Fever >101.5 Albuterol/Ipratropium 3 ml 05/19/24 22:29 Albuterol/Ipratropium (Duoneb) Rt Cathy 3 Ml Nebu INH 06/18/24 22:59 Q4HRRT PRN wheezing Doxycycline Hyclate 100 mg 05/19/24 23:45 05/20/24 08:13 Doxycycline 100 Mg Tablet PO 05/26/24 23:44 100 mg BID QUINCY Administration Ceftriaxone Sodium/Dextrose 50 mls @ 100 mls/hr 05/20/24 14:00 Rocephin/D5w 1gm Iv Premix IV 05/27/24 13:59 QDAY@1400 QUINCY Ondansetron HCl 4 mg 05/19/24 22:29 Ondansetron Inj 2 Mg/Ml Inj 2 Ml IV 06/18/24 22:28 Q6H PRN NAUSEA OR VOMITING Protocol Oxycodone/Acetaminophen 1 tab 05/19/24 22:29 Oxycodone/Apap 5/325 Tablet PO 05/24/24 22:28 Q6H PRN PAIN SCALE 4-6 (Moderate Sodium Chloride 3 ml 05/19/24 13:05 Sodium Chloride Rt Cathy 0.9% 3 Ml Nebu INH 06/18/24 13:04 PRN PRN SOLN Plan 48-year-old female patient with past medical history of asthma, DVT in 2017after she had back surgery, diverticulosis, migraine on verapamil 240 mg as needed, Endometriosis status post hysterectomy presented to the ED was brought to the ED by her daughter after she had an episode of syncope this morning. Patient is admitted for workup of syncope and treatment of sepsis secondary to pneumonia. #Syncopal episode #Hypertension most likely secondary to medication side effect, less likely arrhythmia, Patient has history of migraine in which she takes verapamil to 240 mg p.o. as needed, before her episode today she took 1 pill of verapamil 240 mg. Patient was found by the EMS to have weak pulse, low blood pressure Troponin was within normal limits, EKG showed [place] interval was borderline at 197 potassium was 3.3, magnesium and phosphorus within normal limits Orthostatic vitals negative Current blood pressure normotensive Echo showed LV appears normal with EF 60-65%. Diastolic Dysfunction II present. RV appears normal with RVSP 21 mmHg. MV has mild MR & MAC AOV has trace-mild AI. TV has mild TR. ? Monitor telemetry ? Discontinue verapamil ? PT referral #Sepsis secondary to pneumonia #Community-acquired pneumonia #History of asthma On presentation patient heart rate was 92 despite that the patient took verapamil this morning, WBC was 12.7, chest CT showed extensive bilateral pneumonia. And it was negative for pulmonary embolism At this time patient on saturating 97% on 2 L nasal cannula Blood cultures negative Cocci IgM negative, RSV negative ? on ceftriaxone 1 g daily ? on doxycycline 100 mg ? MRSA screening ? Follow-up urine culture ? follow-up Legionella #History of migraine ?Consider starting an alternative medication for migraine headaches #History of diverticulosis At this time patient reported that there is some tinge of blood with her stool, she said that her condition is chronic and she has had colonoscopy and she was diagnosed with diverticulosis. Patient denied any other source of bleeding, she has history of hysterectomy secondary to endometriosis ? Monitor CBC daily ? Consider GI consult if hemoglobin continues to drop. Case discussed with my senior Dr. Goetz PGY-[address] Deborah Lindsey MD PGY-1 Disposition: Telemetry Fluids: None Feeding: Cardiac diet Thrombo prophylaxis: SCDs Gastric Ulcer prophylaxis: Not indicated CODE STATUS: Full code
[2024-05-20 12:59] LABS: Cocci Serology, IgM Negative (Negative)
--- NOTE | 2024-05-20 13:04 | PC.PT ---
Attempt to initiate PT evaluation. Patient states she cannot walk without her shoes. This PT asked if she have her shoes here. She said no. This PT informed her that I have non skid socks. Patient refused to wear non skid socks and said she can only walk with her shoes. She said she can walk to the bathroom already. This is confirmed by [employer]IPMENT OPERATOR. Will cancel PT evaluation secondary to patient refused. RN made aware.
--- NOTE | 2024-05-20 15:23 | ESDS_ITS ---
<Statement entered by Trupti Cabrera DO - 05/20/24 17:11> I, Trupti Cabrera DO, attest that I was physically present for the meyers portions of the service and evaluated the patient with the resident and I reviewed and discussed the case with the resident and agree with the resident's findings and plans of care as documented above <Statement entered by Annika Denise MD - 05/20/24 16:34> I discussed with and supervised the international coordinator physician who took care of this patient. I personally saw and examined the patient and discussed the assessment and plan with the entire medicine team, including my attending Dr. Cabrera, I agree with the assessment and plan as documented below Patient seen and examined at bedside today. Labs and imaging reviewed. All questions were answered and recommendation were given to, the ED at any time if she is not feeling well, patient will be discharged with: ? Follow-up with PCP 3 to 5 days after discharge ? Stop verapamil ? Continue doxycycline 100 mg p.o. twice daily for 4 more days. Annika Denise MD PGY-3 Disclaimer: Despite multiple revisions, due to the dictation software being used, the document bellow may not be free of grammatical errors including phonetic/typographic errors. However, this does not deter from our commitment to providing health care in the patient's best interest in mind. Planned Discharge Date 05/20/24 DS: Providers Provider Date of admission: 05/19/24 22:29 Primary care physician: Chepe Lindsey MD Admitting Provider: Tigist Gamble MD Attending Provider on Admission: Tigist Gamble MD Attending Provider on DC: Trupti Cabrera DO Discharging Provider: Davey Lindsey MD Anticipated date of discharge: 05/20/24 DS: Diagnosis Problem List Completed Was Problem List Reviewed/Reconciled?: Yes Hospital Course Hospital Course Hospital course: 48-year-old female patient with past medical history of asthma, DVT in 2017 after she had back surgery, diverticulosis, migraine on verapamil 240 mg as needed, Endometriosis status post hysterectomy presented to the ED was brought to the ED by her daughter after she had an episode of syncope this morning. The patient reported that she started to feel mild headache in which she took every verapamil pill 240 mg. After that the patient became dizzy and sweaty. During hospital stay patient was monitored for repeat signs of syncope none observed. Patient was evaluated with head CT, EKG, echocardiogram all which came back negative. Orthostatic vitals also taking found to be negative. Likely etiology of syncope more along the lines of medication induced. At time of discharge opioid medication and verapamil will be discontinued and can be resumed by her primary care physician or adjust the dosage as deemed necessary. Patient also found to have bilateral pneumonia which was managed with IV antibiotics and transition to p.o. antibiotics at the time of discharge. At this time patient is medically stable for discharge. Follow-up with your primary care physician within 1 week of discharge. Continue antibiotic doxycycline for 4 more days. Verapamil and levorphanol has been discontinued, if migraines continue please see a neurologist or primary care physician in regards to resuming or adjusting dose on these medications. Should symptoms recur or worsen patient should return to the ED. Problem list: #Syncopal episode #Hypertension #Sepsis secondary to pneumonia #Community-acquired pneumonia #History of asthma on inhaler #History of migraine #History of diverticulosis Case discussed with my senior Dr. Denise PGY-[address] Deborah Lindsey MD PGY-1 Status at Discharge Functional status at discharge: independent ambulation Overall status at discharge: patient is back to baseline Time Spent with Patient Time attestation: Total time spent providing and/or coordinating discharge services: Time spent: Greater than 30 minutes Exam Vital Signs Temp Pulse Resp BP Pulse Ox O2 Del Method O2 Flow Rate 97.5 F 88 14 113/69 97 Nasal Cannula 2 05/20/24 12:05/20/24 12:05/20/24 12:05/20/24 12:05/20/24 12:05/20/24 12:05/20/24 12:00 Narrative Exam Physical Exam GENERAL: NAD, AAOx3, obese HEENT: Moist mucosa. Eyes open, symmetrical, & clear CARDIO: Heart RRR, no obvious murmurs PULM: No noted coughing/dyspnea CTA B/L, no R/W/R GI: Abdomen soft, nondistended, no pain on palpation. BSx4 SKIN/MSK/EXT: No wounds/rashes/edema/amputations, no pain on palpation. Pedal pulses present B/L NEURO: AAOx3, no focal neuro deficits, able to move all 4 extremities Discharge Plan Problem List Was Problem List Reviewed/Reconciled?: Yes Plan Patient Disposition: HOME (Self Care) Care Plan Goals: Follow-up with your primary care physician within 1 week of discharge Continue antibiotic doxycycline for 4 more days Verapamil and levorphanol has been discontinued, if migraines continue please see a neurologist or primary care physician in regards to resuming or adjusting dose on these medications Should symptoms recur or worsen patient should return to the ED. Prescriptions/Referrals Prescriptions/Med Rec: New doxycycline hyclate 100 mg capsule 100 mg PO BID 4 Days Qty: 8 0RF Continued atorvastatin 20 mg Tablet 40 mg PO HS Qty: 60 0RF famotidine 20 mg Tablet 20 mg PO DAILY Qty: 30 0RF ibuprofen 800 mg Tablet 800 mg PO BID sucralfate 1 gram tablet 1 g PO BID Patient Comments: TAKE ONE TABLET BY MOUTH TWICE DAILY omeprazole 40 mg capsule,delayed release(DR/EC) 40 mg PO QDAY Patient Comments: TAKE ONE CAPSULE BY MOUTH EVERY MORNING GASTRIC ACIDITY HEARTBURN ferrous sulfate [FeroSul] 325 mg (65 mg iron) tablet 325 mg PO QDAY Patient Comments: TAKE ONE TABLET BY MOUTH EVERY DAY VITAMIN WITH ORANGE JUICE albuterol sulfate 90 mcg/actuation HFA aerosol inhaler 2 puff INHALATION Q6H PRN (Reason: shortness of breath or wheezing) Patient Comments: INHALE TWO PUFFS BY MOUTH EVERY 6 HOURS NEEDED FOR BREATHING pregabalin 300 mg capsule 300 mg PO TID PRN (Reason: nerve pain) Patient Comments: TAKE ONE CAPSULE BY MOUTH THREE TIMES DAILY NEEDED FOR NERVE PAIN Arnuity Ellipta 200 mcg/actuation blister with device 1 inh INHALATION Q24H Patient Comments: INHALE 1 PUFF BY MOUTH EVERY DAY FOR BREATHING RINSE MOUTH AFTER USE Discontinued levorphanol tartrate 2 mg tablet 2 mg PO BID PRN (Reason: pain) Patient Comments: TAKE ONE TABLET BY MOUTH TWICE DAILY NEEDED verapamil 240 mg tablet extended release 240 mg PO QDAY Patient Comments: TAKE ONE TABLET BY MOUTH EVERY DAY FOR HEADACHE Referrals: Chepe Lindsey MD [Primary Care Provider] - Patient/Caregiver Discharge Instructions Print Language: Wolof Stand Alone Forms: Ricarda Award Info., Patient Portal Info Letter, Work/Release Restrictions Discharge Order Discharge Orders: Discharge (Routine); Ordered 05/20/24 Ordered By: Davey Lindsey Quality Discharge Quality Measures VTE prophylaxis
[2024-05-21 11:13] LABS: Cocci Serology, IgG Negative (Negative)
== END 2024-05-20 17:06 | disposition home or self-care (01) ==
LOC: SERX 21:05 → SERHOLD 05-20 08:26 → S3NX 05-20 08:27 → S2NX 05-20 08:27
PROVIDERS: Emergency Medicine; Student in an Organized Health Care Education/Training Program; Admitting Provider Internal Medicine; Emergency Provider Emergency Medicine; PCP Family Medicine; Visit Provider Internal Medicine
DX: J18.9 Pneumonia, unspecified organism (principal); I10 Essential (primary) hypertension; E87.20 Acidosis, unspecified; J45.909 Unspecified asthma, uncomplicated; J96.01 Acute respiratory failure with hypoxia; K57.30 Diverticulosis of large intestine without perforation or abscess without bleeding; K76.0 Fatty (change of) liver, not elsewhere classified; Z90.710 Acquired absence of both cervix and uterus; G43.009 Migraine without aura, not intractable, without status migrainosus; Z01.810 Encounter for preprocedural cardiovascular examination; Z86.718 Personal history of other venous thrombosis and embolism
CPT/HCPCS: 36415; 36600; 70450; 70490; 71045; 71275; 74177; 76801; 80053; 81001; 81025; 82803; 83605; 83735; 83880; 84100; 84145; 84439; 84443; 84484; 84702; 84703; 85025; 85379; 85610; 85652; 85730; 86140; 86331; 86635; 87040; 87081; 87400; 87449; 87634; 87811; 93005; 93306; 94640; 96361; 96365; 96375; 99285; A4649; G0378; J0696; J2060; J7030; J7040; Q9967; A9270